=== PATIENT | male | born 1950 | race African-American/Black ===

== ENCOUNTER 2022-03-12 16:52 | Inpatient (IN) | payer MEDICARE, MEDICAID ==
[2022-03-12] MEDS ORDERED: Dextrose 5% in Water 1,000 ML IV PRN (17:53)
[2022-03-12] MEDS ORDERED: Dextrose 50% Abboject 50 ML SYRINGE SLOW IVP PRN (17:53)
[2022-03-12] MEDS ORDERED: HumaLOG 300 UNITS/3 ML VIAL SC PRN (17:53)
[2022-03-12] MEDS ORDERED: Ondansetron PF 4 MG/2 ML Vial IVP PRN (17:53)
[2022-03-12] MEDS ORDERED: Vancomycin HCl 500 MG in Sodium Chloride 0.9% 100 ML IVPB SCH (18:15)
[2022-03-12] MEDS ORDERED: Vancomycin HCl 750 MG in Sodium Chloride 0.9% 250 ML 250 ML IVPB SCH ×2 (18:45→19:00)
[2022-03-12 18:57] VITALS: BMI 35.4
[2022-03-12] MEDS ORDERED: HOLD VANCOMYCIN FOR LEVEL >20 FS SCH (19:00)
[2022-03-12] MEDS ORDERED: Vancomycin 1 GM in Premix Bag 1 BAG IVPB SCH (19:00)
[2022-03-12] MEDS ORDERED: Vancomycin HCl 1.25 GM in Sodium Chloride 0.9% 250 ML 250 ML IVPB SCH (19:00)
[2022-03-12] MEDS ORDERED: Vancomycin HCl 1.5 GM in Sodium Chloride 0.9% 250 ML 300 ML IVPB SCH (19:00)
[2022-03-12 20:46] LABS: Troponin I 0.238 ng/mL (< 0.028)
[2022-03-12] MEDS: Heparin 5,000 UNITS/ML VIAL SC SCH (22:18)
[2022-03-13 01:58] LABS: Troponin I 0.316 ng/mL (< 0.028)
[2022-03-13] MEDS ORDERED: Heparin 25,000 units/D5W 500 ML IVPB SCH (02:15)
[2022-03-13] MEDS ORDERED: Heparin 10,000 UNITS/ 10 ML VIAL SLOW IVP SCH (02:15)
[2022-03-13 04:32] LABS: Anion Gap 19 mmol/L (10-20); BUN (Urea Nitrogen) 61 mg/dL (8.4-25.7); Calc. Creatinine Clearance 13 mL/min (70-130); Calcium 7.9 mg/dL (7.8-10.44); Carbon Dioxide 19 mmol/L (23-31); Chloride 103 mmol/L (98-107); Glucose 110 mg/dL (83-110); Potassium 5.8 mmol/L (3.5-5.1); Sodium 135 mmol/L (136-145)
[2022-03-13 05:01] LABS: Vancomycin, Random 17.5 ug/mL (See Comment)
[2022-03-13] MEDS ORDERED: Calcium Gluc 4.6 MEQ/10 ML (100 MG/ML) SLOW IVP ONE (07:55)
[2022-03-13 08:37] LABS: Hemoglobin 14.8 g/dL (13.5-17.5); Mean Corpuscular HGB CONC 34.6 g/dL (32.0-36.0); Mean Corpuscular Volume 92.6 fl (81.2-95.1); Mean Platelet Volume 13.2 fl (7.4-10.4); Platelet Count 39 10x3/uL (150-450); RBC Distribution Width 15.6 % (11.5-14.5); Red Blood Cell (RBC) Count 4.62 10x6/uL (4.32-5.72); White Blood Cell (WBC) Count 7.5 10x3/uL (3.5-10.5)
[2022-03-13] MEDS ORDERED: Calcium Gluconate 4.6 MEQ in Sodium Chloride 0.9% 100 ML IVPB SCH (09:00)
[2022-03-13 09:06] LABS: MDiff Complete? YES
[2022-03-13 09:11] LABS: Band 6 % (5-11); Neutrophil 82 % (42-75)
[2022-03-13 09:12] LABS: Lymphocytes 8 % (21-51); Monocytes 4 % (0-10); Platelet Morphology Comment Appears Decreased
[2022-03-13 09:14] LABS: Burr Cells SLIGHT = 2-5 cells (100X) (0-1/hpf)
[2022-03-13] MEDS ORDERED: Insulin Regular 300 UNITS/3 ML VIAL IVP SCH (10:00)
[2022-03-13 10:42] LABS: Lactic Acid 2.4 mmol/L (0.5-2.2)
[2022-03-13] MEDS: Heparin 5,000 UNITS/ML VIAL SC SCH (10:45)
[2022-03-13] MEDS ORDERED: Vancomycin HCl 750 MG in Sodium Chloride 0.9% 250 ML 250 ML IVPB SCH (11:00)
[2022-03-13] MEDS ORDERED: Cefepime 1 GM in Sodium Chloride 0.9% 100 ML IVPB SCH (12:00)
[2022-03-13] MEDS ORDERED: Heparin 10,000 UNITS/ 10 ML VIAL SLOW IVP PRN (12:03)
[2022-03-13] MEDS ORDERED: Midodrine HCl 5 MG TAB PO PRN (12:19)
[2022-03-13] MEDS ORDERED: Bisacodyl 10 MG SUPP PR PRN (12:19)
[2022-03-13] MEDS ORDERED: Polyethylene Glycol 3350 17 GM Packet PO PRN (12:19)
[2022-03-13] MEDS: Sevelamer Carbonate 800 MG TAB PO SCH (17:15)
[2022-03-13] MEDS: Cefepime 1 GM in Sodium Chloride 0.9% 100 ML IVPB SCH (17:25)
[2022-03-13 20:02] LABS: Potassium 4.9 mmol/L (3.5-5.1)
[2022-03-13 20:16] LABS: Troponin I 0.203 ng/mL (< 0.028)
[2022-03-13] MEDS: Acetaminophen 325 MG TAB PO PRN (20:59)
[2022-03-14 05:55] LABS: Hemoglobin 13.9 g/dL (13.5-17.5); Mean Corpuscular HGB CONC 34.3 g/dL (32.0-36.0); Mean Corpuscular Hemoglobin 31.5 pg (27.0-33.0); Mean Corpuscular Volume 91.8 fl (81.2-95.1); Platelet Count 37 10x3/uL (150-450); RBC Distribution Width 15.6 % (11.5-14.5); Red Blood Cell (RBC) Count 4.41 10x6/uL (4.32-5.72); White Blood Cell (WBC) Count 7.6 10x3/uL (3.5-10.5)
[2022-03-14 05:56] LABS: Lactic Acid 1.9 mmol/L (0.5-2.2)
[2022-03-14 06:07] LABS: Anion Gap 17 mmol/L (10-20); BUN (Urea Nitrogen) 45 mg/dL (8.4-25.7); Calc. Creatinine Clearance 17 mL/min (70-130); Carbon Dioxide 24 mmol/L (23-31); Chloride 98 mmol/L (98-107); Glucose 84 mg/dL (83-110); Potassium 3.9 mmol/L (3.5-5.1); Sodium 135 mmol/L (136-145)
[2022-03-14 06:13] LABS: Phosphorus 2.1 mg/dL (2.3-4.7)
[2022-03-14] MEDS: Atorvastatin Calcium 20 MG TAB PO SCH (10:28)
[2022-03-14] MEDS: Amiodarone 200 MG TAB PO SCH (10:28)
[2022-03-14] MEDS: Clopidogrel Bisulfate 75 MG TAB PO SCH (10:28)
[2022-03-14 12:41] LABS: Hemoglobin A1c 5.1 % (4.0-6.0)
[2022-03-14] MEDS: Cefepime 1 GM in Sodium Chloride 0.9% 100 ML IVPB SCH (16:54)
[2022-03-14] MEDS ORDERED: Midodrine HCl 2.5 MG TAB PO PRN (20:32)
[2022-03-15 04:41] LABS: Hemoglobin 14.9 g/dL (13.5-17.5); Mean Corpuscular HGB CONC 34.2 g/dL (32.0-36.0); Mean Corpuscular Hemoglobin 31.4 pg (27.0-33.0); Mean Corpuscular Volume 91.8 fl (81.2-95.1); Platelet Count 43 10x3/uL (150-450); RBC Distribution Width 16.1 % (11.5-14.5); Red Blood Cell (RBC) Count 4.75 10x6/uL (4.32-5.72); White Blood Cell (WBC) Count 5.6 10x3/uL (3.5-10.5)
[2022-03-15 04:47] LABS: Anion Gap 21 mmol/L (10-20); BUN (Urea Nitrogen) 61 mg/dL (8.4-25.7); Calc. Creatinine Clearance 14 mL/min (70-130); Calcium 8.1 mg/dL (7.8-10.44); Carbon Dioxide 19 mmol/L (23-31); Chloride 99 mmol/L (98-107); Glucose 87 mg/dL (83-110); Potassium 4.1 mmol/L (3.5-5.1); Sodium 135 mmol/L (136-145)
[2022-03-15] MEDS: Sevelamer Carbonate 800 MG TAB PO SCH ×3 (08:00→17:08)
[2022-03-15 08:22] LABS: Vancomycin, Random 18.2 ug/mL (See Comment)
[2022-03-15] MEDS ORDERED: Pregabalin 75 MG CAP PO SCH (09:00)
[2022-03-15] MEDS: Clopidogrel Bisulfate 75 MG TAB PO SCH (09:00)
[2022-03-15] MEDS ORDERED: Iopamidol 300 61% 100 ML VIAL FS ONE (09:22)
[2022-03-15] MEDS: Amiodarone 200 MG TAB PO SCH (13:00)
[2022-03-15] MEDS: Atorvastatin Calcium 20 MG TAB PO SCH (13:00)
[2022-03-15 15:24] LABS: Lactic Acid 1.4 mmol/L (0.5-2.2)
[2022-03-15] MEDS ORDERED: Vancomycin HCl 750 MG in Sodium Chloride 0.9% 250 ML 250 ML IVPB SCH (17:00)
[2022-03-15] MEDS: Cefepime 1 GM in Sodium Chloride 0.9% 100 ML IVPB SCH (17:08)
[2022-03-15] MEDS: Acetaminophen 325 MG TAB PO PRN (20:35)
[2022-03-16] MEDS: Amiodarone 200 MG TAB PO SCH (09:07)
[2022-03-16] MEDS: Sevelamer Carbonate 800 MG TAB PO SCH ×2 (09:07→12:45)
[2022-03-16] MEDS: Atorvastatin Calcium 20 MG TAB PO SCH (09:07)
[2022-03-16 16:43] VITALS: BP 120/59; TEMP 97.4
== END 2022-03-16 18:00 | disposition home or self-care (01) | DRG 871 ==
LOC: CSHTELE 16:52 → CSHIMCU 18:09 → CSHTELE 03-13 07:18
PROVIDERS: ADMIT Family Medicine; ATTEND Internal Medicine
PROC: 5A1D70Z Performance of Urinary Filtration, Intermittent, Less than 6 Hours Per Day (ICD-10-PCS; principal; 2022-03-13)
PROC: 5A1D70Z Performance of Urinary Filtration, Intermittent, Less than 6 Hours Per Day (ICD-10-PCS; 2022-03-15)
DX: A41.51 Sepsis due to Escherichia coli [E. coli] (principal); N18.6 End stage renal disease; G93.41 Metabolic encephalopathy; I21.A1 Myocardial infarction type 2; L97.909 Non-pressure chronic ulcer of unspecified part of unspecified lower leg with unspecified severity; E87.2 Acidosis; E11.22 Type 2 diabetes mellitus with diabetic chronic kidney disease; Z66 Do not resuscitate; E78.5 Hyperlipidemia, unspecified; I25.10 Atherosclerotic heart disease of native coronary artery without angina pectoris; E11.622 Type 2 diabetes mellitus with other skin ulcer; L98.419 Non-pressure chronic ulcer of buttock with unspecified severity; E87.5 Hyperkalemia; D69.6 Thrombocytopenia, unspecified; I48.0 Paroxysmal atrial fibrillation; E66.9 Obesity, unspecified; E89.0 Postprocedural hypothyroidism; I10 Essential (primary) hypertension; N28.1 Cyst of kidney, acquired; Z88.5 Allergy status to narcotic agent; Z79.899 Other long term (current) drug therapy; Z79.2 Long term (current) use of antibiotics; Z98.890 Other specified postprocedural states; Z87.891 Personal history of nicotine dependence; Z99.2 Dependence on renal dialysis; Z68.35 Body mass index [BMI] 35.0-35.9, adult
CPT/HCPCS: 36415; 36416; 71045; 74177; 76705; 80048; 80053; 80202; 82553; 83036; 83605; 83690; 83880; 84100; 84484; 85025; 85027; 85652; 85730; 86140; 87040; 87077; 87149; 87186; 90935; 93005; 93010; 93306; 96365; 96368; G0257; J0610; J0692; J0696; J1644; J1815; J3370; J3490; J7050; Q9967